=== PATIENT | male | born 2000 | race African-American/Black ===

== ENCOUNTER 2020-08-14 15:21 | Outpatient (REF) | payer OTHER, SELFPAY | END 2020-08-14 15:22 | disposition home or self-care (01) | LOC: HO.LAB 15:21 | PROVIDERS: Visit Provider Internal Medicine | DX: Z20.828 Contact with and (suspected) exposure to other viral communicable diseases (principal) | CPT/HCPCS: C9803; U0003 ==

== ENCOUNTER 2020-09-17 20:10 | Emergency (ER) | payer OTHER, SELFPAY ==
[2020-09-17 20:18] VITALS: BP 122/71; PULSE 72; RESP 18; TEMP 36.4; O2SAT 97
[2020-09-17 20:20] VITALS: BP 122/79; BP 140/78; PULSE 76; RESP 20; O2SAT 99; BMI 29.0
--- NOTE | 2020-09-17 20:30 | PC.NURSE ---
MD at bedside for primary eval. Plan for CT, labs and UA.
--- NOTE | 2020-09-17 20:32 | ECG_ITS ---
Test Reason : SYNCOPEE Blood Pressure : / mmHG Vent. Rate : 091 BPM Atrial Rate : 091 BPM P-R Int : 122 ms QRS Dur : 092 ms QT Int : 348 ms P-R-T Axes : 005 039 029 degrees QTc Int : 428 ms Normal sinus rhythm with sinus arrhythmia Normal ECG No previous ECGs available Referred By: Deandre Westbrook Electronically Signed By:SANTANA TUCKER
--- NOTE | 2020-09-17 20:33 | CT_ITS ---
EXAMINATION: CT HEAD WITHOUT CONTRAST CLINICAL INFORMATION: Syncope. Headache. COMPARISON: None TECHNIQUE: Contiguous axial imaging was performed from the skull base to vertex without intravenous administration of contrast. This CT examination was performed using dose optimization techniques as appropriate, variously including the following: *Automated exposure control. *Adjustment of mA and/or kV according to patient size (this includes techniques or standardized protocols for targeted exams where dose is matched to indication/reason for exam; i.e. extremities or head). *Use of iterative reconstruction technique. DLP: 684 mGy-cm FINDINGS: There is no evidence of acute intracranial hemorrhage or territorial infarction. No abnormal mass effect or midline shift is seen. [id number] matter differentiation is well preserved. No extra-axial fluid collections are identified. The ventricles are normal in size. There is no abnormal attenuation within the brain parenchyma. No acute fracture. The mastoid air cells and visualized portions of the paranasal sinuses are well aerated. CT/CT head/brain wo con IMPRESSION: No CT evidence of acute intracranial pathology.
--- NOTE | 2020-09-17 20:35 | PC.NURSE ---
Immediately after primary eval by MD, pts entire body tensed up, eyes rolling back into his head, nonresponsive to verbal commands by this RN for approx 10 seconds. MD returning to bedside, pt coming to suddenly, CAOx4, speaking full sentences, crying and tearful. Continue to monitor.
[2020-09-17] MEDS: LORazepam 2 MG/ML VIAL 1 MG IVPUSH (20:40)
[2020-09-17] MEDS: 0.9 % Sodium Chloride 1,000 ML 999 ML IV (20:40)
--- NOTE | 2020-09-17 20:40 | PC.NURSE ---
Medicated per MAR, technical specialist at bedside for EKG and labs.
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
[2020-09-17 20:57] LABS: MANUAL DIFF FLAG NO
[2020-09-17 20:58] LABS: Basophils Percent Auto 0.3 % (0-2); Eosinophils Absolute Auto 0.1 X10*3/uL (0.0-0.4); Hematocrit 41.4 % (42-52); Hemoglobin 14.8 g/dl (14.0-18.0); Imm Gran Abs Auto 0.01 X10*3/uL (0.00-0.03); Imm Gran Pct Auto 0.1 % (0.0-0.4); Lymphocytes Absolute Auto 1.6 X10*3/uL (1.2-4.9); Lymphocytes Percent Auto 17.6 % (20-40); Mean Corpuscular HGB Conc 35.7 g/dl (31.0-36.0); Mean Corpuscular Volume 86.8 fL (80-98); Monocytes Absolute Auto 0.7 X10*3/uL (0.1-1.2); Monocytes Percent Auto 7.9 % (2-11); Neutrophils Absolute Auto 6.8 X10*3/uL (2.0-8.3); Neutrophils Percent Auto 73.1 % (45-73); Platelet Count 240 X10*3/uL (160-400); Red Blood Count 4.77 X10*6/uL (4.60-5.80); Red Cell Distribution Width 11.3 % (11.0-16.0); White Blood Count 9.3 X10*3/uL (4.8-10.8)
[2020-09-17 21:28] LABS: Alanine Aminotransferase 71 U/L (0-40); Albumin Level 4.7 g/dL (3.5-5.0); Alkaline Phosphatase 80 U/L (39-117); Anion Gap 14 (12-20); Aspartate Amino Transferase 36 U/L (5-37); Bilirubin Direct 0.2 mg/dL (0.0-0.5); Bilirubin Total 0.4 mg/dL (0.0-1.0); Blood Urea Nitrogen 15 mg/dL (9-16); Calcium 8.9 mg/dL (8.4-10.2); Carbon Dioxide 24 mmol/L (22-29); Chloride 107 mmol/L (96-108); Creatinine Clr Calc Pharmacy 141.2; Estimated Glomerular Filt Rate > 60; Glucose Random 119 mg/dL (60-115); Potassium 3.9 mmol/L (3.3-5.1); Sodium 141 mmol/L (135-145); Total Protein 7.2 g/dL (6.5-8.0)
[2020-09-17 21:35] LABS: Troponin-I High Sensitivity < 3.5 ng/L (<3.5-35.0)
[2020-09-17 22:05] VITALS: BP 138/96; PULSE 68; RESP 16; TEMP 36.4; O2SAT 97
--- NOTE | 2020-09-17 22:14 | PC.NURSE ---
industrial cleaning technician removing IV and transferring pt to pod.
--- NOTE | 2020-09-17 22:30 | PC.NURSE ---
Pt sleeping in bed at this time, VSS. Continue to monitor.
[2020-09-17 23:07] VITALS: RESP 16
--- NOTE | 2020-09-17 23:32 | PC.NURSE ---
MD at bedside to update pt on results and plan of care.
== END 2020-09-17 23:52 | disposition home or self-care (01) ==
PROVIDERS: Emergency Provider Emergency Medicine Emergency Medical Services
DX: F44.5 Conversion disorder with seizures or convulsions (principal); F41.0 Panic disorder [episodic paroxysmal anxiety]; F12.10 Cannabis abuse, uncomplicated; F90.9 Attention-deficit hyperactivity disorder, unspecified type
CPT/HCPCS: 36415; 70450; 80048; 80076; 84484; 85025; 93005; 96361; 96374; 99284; J2060

== ENCOUNTER 2024-05-16 10:16 | Emergency (ER) | payer OTHER, SELFPAY ==
--- NOTE | 2024-05-16 | ECG_ITS ---
Test Reason : NEAR SYNCOPE Blood Pressure : / mmHG Vent. Rate : 068 BPM Atrial Rate : 068 BPM P-R Int : 128 ms QRS Dur : 092 ms QT Int : 372 ms P-R-T Axes : -20 044 023 degrees QTc Int : 395 ms Normal sinus rhythm Normal ECG When compared with ECG of 17-SEP-2020 20:42, No significant change was found Referred By: Jamil Samuels Electronically Signed By:BRANDON VERNON
--- NOTE | ~2024-05-16 | XR_ITS ---
EXAMINATION: XR CHEST CLINICAL INFORMATION: Chest pain COMPARISON: None available. TECHNIQUE: 2 views of the chest were obtained. FINDINGS: No focal consolidation, pulmonary edema, or pleural effusion. Normal cardiomediastinal silhouette. XR/XR chest 2V IMPRESSION: No acute cardiopulmonary findings. Electronically signed by: Neri Knox MD 05/16/2024 11:54 AM EDT
[2024-05-16 10:20] VITALS: BP 148/90; PULSE 80; O2SAT 100
--- NOTE | 2024-05-16 10:29 | ED_ITS ---
HPI - SOB/Dyspnea General Chief Complaint: General Medical Stated Complaint: Near Syncope, Hx Anxiety Time Seen by Provider: 05/16/24 10:24 Source: patient Mode of arrival: EMS Limitations: no limitations History of Present Illness HPI Narrative: 24-year-old male states that he is here because on the left side of his chest he feels like he is not getting enough air when he takes a deep breath. He states he is able to breathe normally and then at the end of his respiration feels like it is not feeling up enough. He states he is only getting 35% of his air. He denies any history of this in the past denies any falls or injuries states it started after smoking lots of marijuana as well as playing softball. He denies any musculoskeletal pain he states it is not painful he just feels like he can not take more air in. MD elicited complaint: shortness of breath Related Data Allergies Allergy/AdvReac Type Severity Reaction Status Date / Time Iodinated Contrast Media Allergy Mild ANAPHYLAXIS Unverified 05/16/24 10:39 [CONTRAST, IV] shellfish derived Allergy Mild ANAPHYLAXIS Unverified 05/16/24 10:39 [SHELLFISH DERIVED] Review of Systems Review of Systems: Review of systems: General: Patient denies any fever chills recent illness or falls Musculoskeletal: Denies back pain or body aches or other injuries HEENT: denies headache, runny nose, ear pain Respiratory: denies shortness of breath, cough Cardiovascular: no chest pain or palpitations : denies dysuria, frequency Abdomen: no nausea vomiting denies abdominal pain Extremities: no swelling, no pain Skin: no diaphoresis Yes all other systems are reviewed and are negative [facility] Past Medical History Medical History (Updated 05/16/24 @ 11:26 by Jamil Samuels DO) Marijuana abuse ADHD Social History Social History Alcohol intake: current Alcohol type: beer and hard liquor Smoked in Last 30 Days: Yes Use of substances other than those prescribed or required for medical reasons: Yes Substance Use Type: Marijuana Last Used Substance: Just Prior to Admission Advance Directives: No Do you have a plan to hurt others: No Plan Physical Exam Vital Signs: Vital Signs: Last Vital Signs Temp 97 F 05/16/24 10:52 Pulse 68 05/16/24 10:52 Resp 18 05/16/24 10:52 BP 134/68 05/16/24 10:52 Pulse Ox 99 05/16/24 10:52 O2 Del Method Room Air 05/16/24 10:52 BMI result Body Mass Index 29.1 General: Well-appearing well-nourished in no signs of distress HEENT: Normocephalic atraumatic Neck: No signs of JVD, no masses no tenderness or lymphadenopathy Cardiovascular: Regular rate and rhythm Respiratory: Clear to auscultation bilaterally Abdomen: Soft nontender no masses Extremities: Normal pedal pulses no signs of edema Skin: Dry warm no rashes Back: No tenderness full ROM Course Reevaluation(s) Reevaluation #1: X-ray and EKG are all normal I do feel patient is safe to home and follow up with his doctor. Time: 11:25 Medical Decision Making Medical Decision Making MDM Narrative: With the patient for x-ray and EKG I do think this is looking more anxiety has no pain I did explain that was degree air comes in the 1st half a 2nd of respiration at the end it is just a small amount of air do think he is safe to come he has clear lungs I will get the x-ray as long as that is normal I think he is safe to go follow up with his doctor. Differential Diagnosis Differential Diagnoses: The differential diagnosis associated with the presentation includes Shortness of breath cough pneumonia pneumothorax Independent Interpretation I performed an independent interpretation of an: EKG and Plain X-Ray Interpretation: Rate 68 normal sinus rhythm normal intervals no signs of ischemia no previous for comparison Radiology Impression Discussion of test interpretation with radiology: I have reviewed the radiologist's reading. Discharge Plan Discharge Clinical Impression: Chest pain Patient Disposition: Home, Self-Care Instructions: Chest Pain (DC) Additional Instructions: You were seen today for chest pain and feeling he can not take a deep breath. You had x-ray and EKG which were all normal. Please call follow up with her doctor if you have any other concerns please return to emergency department. Print Language: Hebrew
[2024-05-16 10:36] VITALS: BP 134/68; PULSE 68; RESP 18; TEMP 36.1; O2SAT 99; BMI 29.1
--- NOTE | 2024-05-16 10:49 | PC.NURSE ---
patient by ambulance from work, patient admits to smoking marijuanna this morning, per EMS when patient got to work patient began hyperventilating and had to lower himself to the ground as he felt like he was going to pass out. patient admits to hx of anxiety after marijuanna use, states he also has a weird pain under (his) ribs . patient VSS, denies any fevers at home or cough, denies any sick contacts. currently resting on stretcher, family at bedside
[2024-05-16 10:52] VITALS: BP 134/68; PULSE 68; RESP 18; TEMP 36.1; O2SAT 99
[2024-05-16 11:29] VITALS: BP 121/71; PULSE 83; RESP 16; TEMP 36.7; O2SAT 98
== END 2024-05-16 11:35 | disposition home or self-care (01) ==
PROVIDERS: Emergency Provider Student in an Organized Health Care Education/Training Program
DX: R07.9 Chest pain, unspecified (principal); R06.02 Shortness of breath
CPT/HCPCS: 71046; 93005; 99283; 99284